=== PATIENT | female | born 1980 | race American Indian/Alaskan Native ===

== ENCOUNTER 2019-09-29 15:32 | Emergency (ER) | payer OTHER ==
[2019-09-29 15:41] VITALS: BP 153/82
--- NOTE | 2019-09-29 17:30 | Event Note ---
ED Screening Note ED Screening Note: flu like symptoms that began two days ago states she has headache, fatigue, generalized body aches +fever no n/v/d no ear pain no sore throat no cough states she took motrin just [employer] no sick contacts no PMHx no allergies to meds LNMP: two weeks ago
--- NOTE | 2019-09-29 17:33 | Emergency Department Report ---
ED General Adult HPI - General Chief complaint: Upper Respiratory Infection Stated complaint: FLU SX Time Seen by Provider: 09/29/19 17:25 Source: patient Mode of arrival: Ambulatory Limitations: No Limitations - History of Present Illness Initial comments: pt is a 39 yo female who presents to the ED with c/o "flu like symptoms" that began two days ago. pt states she has headache, fatigue, generalized body aches, +fever , temp was 103 at home per pt. she denies any n/v/d, ear pain, sore throat, cough, SOB, CP. pt states she took motrin just [employer]INING OFF[employer]. no sick contacts. no PMHx. no allergies to meds. LNMP: two weeks ago. - Related Data Previous Rx's Medication Instructions Recorded Last Taken Type Oseltamivir [Tamiflu] 75 mg PO BID 5 Days #10 cap 09/29/19 Unknown Rx Allergies Allergy/AdvReac Type Severity Reaction Status Date / Time No Known Allergies Allergy Unverified 09/29/19 15:38 ED Review of Systems ROS: Stated complaint: FLU SX Other details as noted in HPI Comment: All other systems reviewed and negative ED Past Medical Hx - Past Medical History Previous Medical History?: No - Surgical History Additional Surgical History: weigh loss - Social History Smoking Status: Never Smoker Substance Use Type: None - Medications Home Medications: Home Medications Medication Instructions Recorded Confirmed Last Taken Type Oseltamivir [Tamiflu] 75 mg PO BID 5 Days #10 cap 09/29/19 Unknown Rx ED Physical Exam - General Limitations: No Limitations General appearance: alert, in no apparent distress - Head Head exam: Present: atraumatic, normocephalic - Eye Eye exam: Present: normal appearance - ENT ENT exam: Present: normal orophraynx, mucous membranes moist, TM's normal bilaterally, normal external ear exam - Respiratory Respiratory exam: Present: normal lung sounds bilaterally. Absent: respiratory distress, wheezes, rales, rhonchi, stridor, chest wall tenderness, accessory muscle use, decreased breath sounds, prolonged expiratory - Cardiovascular Cardiovascular Exam: Present: regular rate, normal rhythm, normal heart sounds. Absent: systolic murmur, diastolic murmur, rubs, gallop - Neurological Exam Neurological exam: Present: alert, oriented X3 - Psychiatric Psychiatric exam: Present: normal affect, normal mood - Skin Skin exam: Present: warm, dry, intact ED Course Vital Signs 09/29/19 09/29/19 15:39 17:32 Temperature 98.2 F Pulse Rate 104 H 89 Respiratory 20 Rate Blood Pressure 153/82 O2 Sat by Pulse 100 100 Oximetry ED Medical Decision Making - Medical Decision Making pt is a 39 yo female who presents to the ED with c/o "flu like symptoms" that began two days ago. pt states she has headache, fatigue, generalized body aches, +fever , temp was 103 at home per pt. she denies any n/v/d, ear pain, sore throat, cough, SOB, CP. pt states she took motrin just [employer]ING [employer]. no sick contacts. no PMHx. no allergies to meds. LNMP: two weeks ago. initial vitals with mildly elevated HR which improved upon repeat. normal oropharynx, normal TMs and canals, normal breath sounds bilaterally, no w/r/r. pt has clinical s/sx of inf luenza. given prescription tamiflu. advised pt to please take medication as prescribed. increase your fluid intake over the next several days. may alternate tylenol then ibuprofen every 4 hours as needed for a fever. may take over the counter cough/cold medication. follow up with a primary care doctor in the next 2-3 days. return to the emergency room for any new or worsening symptoms. - Differential Diagnosis influenza, otitis, pharyngitis, URI, PNA, bronchitis, viral syndrome Critical care attestation.: If time is entered above; I have spent that time in minutes in the direct care of this critically ill patient, excluding procedure time. ED Disposition Clinical Impression: Influenza Disposition: [id number] TO HOME OR SELFCARE Is pt being admited?: No Does the pt Need Aspirin: No Condition: Stable Instructions: Influenza (ED) Additional Instructions: please take medication as prescribed. increase your fluid intake over the next several days. may alternate tylenol then ibuprofen every 4 hours as needed for a fever. may take over the counter cough/cold medication. follow up with a primary care doctor in the next 2-3 days. return to the emergency room for any new or worsening symptoms. Prescriptions: Oseltamivir [Tamiflu] 75 mg PO BID 5 Days #10 cap Referrals: RENITA JACK MD [Staff Physician] - 2-3 Days [facility] [Outside] - 2-3 Days [facility] [Outside] - 2-3 Days Forms: Work/School Release Form(ED) Time of Disposition: 17:45 Print Language: FAROESE
== END 2019-09-29 18:07 | disposition home or self-care (01) ==
LOC: ED 15:32
DX: J11.1 Influenza due to unidentified influenza virus with other respiratory manifestations (principal); Z98.890 Other specified postprocedural states; Z79.899 Other long term (current) drug therapy